=== PATIENT | female | born 1950 | race Asian ===

== ENCOUNTER 2023-12-23 08:09 | Day surgery (SDC) | payer OTHER ==
[2023-12-18 12:50] VITALS: BMI 19.3
[2023-12-23] MEDS: CYCLOPENTOLATE 2% OPHTH SOLN 2 ML BOTTLE ONE (08:35)
[2023-12-23] MEDS: TROPICAMIDE 1% OPHTH SOLN 15 ML BOTTLE ONE (08:35)
[2023-12-23] MEDS: CIPROFLOXACIN 0.3% EYE DROPS 5 ML BOTTLE ONE (08:35)
[2023-12-23] MEDS: PHENYLEPHRINE 2.5% OPTHALMIC DROP 2ML BOTTLE ONE (08:35)
[2023-12-23] MEDS ORDERED: EPINEPHrine/PF 1 MG/1 ML (1:1,000) AMPULE ONE (08:43)
[2023-12-23] MEDS ORDERED: LIDOCAINE 1% P/F 10 MG/ML VIAL ONE (08:43)
[2023-12-23] MEDS ORDERED: NEO/POLYMYX B SULF/DEXAMETH OPHTHALMIC 5ML BOTTLE ONE (08:44)
[2023-12-23] MEDS ORDERED: BSS (NA/CA/MG/K) BALANCED SALT SOLUTION OPHTH SOLN 15 ML BOTTLE ONE (08:44)
[2023-12-23] MEDS ORDERED: TETRACAINE 0.5% OPHTH SOLN 2 ML BOTTLE ONE (08:44)
[2023-12-23] MEDS ORDERED: CARBACHOL 0.01% INTRA-OCULAR 1.5 ML VIAL ONE (08:44)
[2023-12-23] MEDS ORDERED: MIDAZOLAM HCL 2 MG/2 ML SINGLE DOSE VIAL ONE (10:02)
[2023-12-23 10:51] VITALS: TEMP 97.5
[2023-12-23 11:29] VITALS: BP 126/71; PULSE 69; RESP 18
== END 2023-12-23 11:20 | disposition home or self-care (01) ==
LOC: FASU 08:09
PROVIDERS: ATTEND Ophthalmology
PROC: 08RK3JZ Replacement of Left Lens with Synthetic Substitute, Percutaneous Approach (ICD-10-PCS; principal; 2023-12-23 10:13)
DX: H26.8 Other specified cataract (principal)
CPT/HCPCS: 66984; V2632; 82962

== ENCOUNTER 2024-11-06 16:30 | Emergency (ER) | payer OTHER ==
[2024-11-06 16:45] VITALS: BP 122/77; PULSE 76; RESP 16; TEMP 98.5; BMI 18.8
== END 2024-11-06 17:08 | disposition home or self-care (01) ==
LOC: FER 16:30
DX: S00.03XA Contusion of scalp, initial encounter (principal); W18.30XA Fall on same level, unspecified, initial encounter
CPT/HCPCS: 99283-25